=== PATIENT | female | born 1990 | race Asian ===

== ENCOUNTER → 2020-08-19 13:22 | Outpatient (CLI) | payer OTHER, SELFPAY ==
--- NOTE | ~2020-08-19 | US_ITS ---
EXAMINATION: US OB >= 14 weeks Fetus DATE: 08/19/2020 14:04 INDICATION: Uterine size-date discrepancy TECHNIQUE: Real-time transabdominal obstetric ultrasound. FINDINGS: No prior studies for comparison. There is a single living fetus in breech presentation. The placenta is posterior without placenta pr evia. cardiac activity and movement is noted with a heart rate of 149 beats per minute. T he amniotic fluid volume is normal. The following biometric data were obtained: BPD: 44mm corresponds to gestational age 19 weeks 2 days. Head circumference: 155mm corresponds to gestational age 18 weeks 3 days. Abdominal circumference: 132mm corresponds to gestational age 18 weeks 5 days. Femur length: 26mm corresponds to gestational age 17 weeks 6 days. Estimated weight: 237grams +/- 36grams.] IMPRESSION: 1. Single living intrauterine in breech presentation with an estimated gestational age of 18 weeks 4 days by current ultrasound. 2. Normal placenta. Reviewed, dictated and finalized at location A. [employer] IMPRESSION: 1. Single living intrauterine in breech presentation with an estimat ed gestational age of 18 weeks 4 days by current ultrasound. 2. Normal placenta.
== END ==
DX: O26.841 Uterine size-date discrepancy, first trimester (principal); Z3A.18 18 weeks gestation of pregnancy
CPT/HCPCS: 76805